=== PATIENT | female | born 1985 | race Caucasian/White ===

== ENCOUNTER 2025-01-29 13:21 | Emergency (ER) | payer SELFPAY ==
[2025-01-29] MEDS ORDERED: ONDANSETRON 4 MG (ODT) TAB ONE (13:38)
[2025-01-29] MEDS ORDERED: MORPHINE 4 MG/ML SYR ONE (13:38)
[2025-01-29] MEDS ORDERED: TDAP (DIPHTH,PERTUSS(ACELL),TET VAC) 0.5 ML VIAL IMVAC ONE (13:45)
--- NOTE | 2025-01-29 14:13 | RAD REPORT ---
EXAMINATION: XR RIGHT FOOT CLINICAL INDICATION: Female, 39 years old. PAIN TECHNIQUE: Multiple views of the right foot were obtained. COMPARISON: No prior exam. FINDINGS: Soft tissue swelling is present affecting the great toe. No acute fracture seen. No disloc ation evident.
[2025-01-29] MEDS ORDERED: LIDOCAINE 1% 20 ML MDV ONE (14:16)
--- NOTE | 2025-01-29 14:48 | EDPHYS ---
Physician Documentation [facility] Name: Kirti Huitron Age: 39 yrs Sex: Female : 1985 Arrival Date: 01/29/2025 Time: 13:21 Bed 13 Private MD: ED Physician Sangeeta Doty HPI: 01/29 13:47 This 39 yrs old Female presents to ER via Wheelchair with complaints of Crush Injury To sb4 Foot - big toe. 13:47 The patient presents with an injury. The complaints affect the right foot. 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 Historical: - Allergies: 13:29 Vancomycin; ap3 - Home Meds: 13:29 None [Active]; ap3 - Immunization history:: Client reports having NOT received the Covid vaccine. Flu vaccine is not up to date. - Infectious Disease History:: Denies. - Social history:: Smoking status: Patient denies any tobacco usage or history of. ROS: 13:48 MS/extremity: Positive for injury or acute deformity, pain, of the right first toe, sb4 13:48 Constitutional: Negative for fever, chills, and weight loss, Exam: 13:56 Head/Face: Normocephalic, atraumatic. Eyes: Extra-ocular motions intact. Periorbital sb4 areas with no swelling, redness, or edema. ENT: Mucous membranes moist. Respiratory: No increased work of breathing, no retractions or nasal flaring. 13:56 Constitutional: The patient appears alert, awake, anxious, in obvious pain, 13:56 Musculoskeletal/extremity: Nails: complete avulsion, of the right first toe, 13:56 Skin: injury, Vital Signs: 13:27 Pulse 87; Resp 19; Temp 97.6; Pulse Ox 98% ; Weight 81.65 kg; Height 5 ft. 2 in. ; Pain ap3 10/10; 13:30 BP 118 / 83; ap3 13:27 Body Mass Index 32.92 (81.65 kg, 157.48 cm) ap3 13:27 Pain Scale: Adult ap3 Gus Coma Score: 13:31 Eye Response: spontaneous(4). Motor Response: obeys commands(6). Verbal Response: ap3 oriented(5). Total: 15. Trauma Score (Adult): 13:31 Eye Response: spontaneous(1); Verbal Response: oriented(1); Motor Response: obeys ap3 commands(2); Systolic BP: > 89 mm Hg(4); Respiratory Rate: 10 to 29 per min(4); Gus Score: 15; Trauma Score: 12 Procedures: 15:00 Nerve block: (digital) of left first toe Medication: Lidocaine 1% without epinephrine sb4 Amount: 5 mls were injected, Effect: the patient's symptoms are improved, Set up for procedure. Performed by Bettye Estes PA-C Patient tolerated well. Right great toenail was splinted back into nailbed and sutured down with one 3-0 Vicryl. Patient tolerated well. MDM: 13:24 Medical Screening Exam initiated sb4 14:04 Independent interpretation of the following test(s) in the Emergency Department X-Ray: sb4 My interpretation is my interpretation of the right foot xray images is no acute fracture of great toe. 15:02 Data reviewed: vital signs, nurses notes, radiologic studies, I have discussed the sb4 patient's presentation/case with the attending Emergency Department Physician; and as a result, I will discharge patient. 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 01/29 13:38 Order name: Foot Right 3 View XRAY; Complete Time: 14:14 sb4 01/29 14:47 Order name: Wound dressing; Complete Time: 15:16 sb4 Administered Medications: 13:49 Drug: morphine IM 4 mg IM once Route: IM; Site: left deltoid; ld1 14:44 Follow up: Response: No adverse reaction ld1 13:49 Drug: Ondansetron PO 4 mg PO once Route: PO; ld1 14:43 Follow up: Response: No adverse reaction ld1 13:49 Drug: Boostrix Tdap IM 0.5 ml IM once; as a single dose Route: IM; Site: right deltoid; ld1 14:44 Follow up: Response: No adverse reaction ld1 14:43 Drug: Lidocaine Infiltration (1 %) 20 ml 20 ml Infiltration once; to bedside {Note: ld1 Administered by PA. Bettye} Volume: 20 ml; Route: Infiltration; Disposition Summary: 01/29/25 14:48 Discharge Ordered Notes: Location: Home sb4 Problem: new sb4 Symptoms: have improved sb4 Condition: Stable sb4 Diagnosis - Contusion of great toe with damage to nail sb4 Followup: sb4 - With: Fady Baires DPM - When: 1 week - Reason: Recheck today's complaints, Re-evaluation by your physician Discharge Instructions: - Discharge Summary Sheet sb4 - Nail Avulsion sb4 Forms: - Patient Portal Instructions sb4 - Leadership Thank You Letter sb4 Signatures: Dispatcher [employer] Arabella Wilson RN RN ap3 Sugar Noel RN RN ld1 Bettye Estes PA-C PA-C sb4 Corrections: (The following items were deleted from the chart) 15:05 13:56 Musculoskeletal/extremity: Nails: partial avulsion, of the right first toe, sb4 sb4
--- NOTE | 2025-01-29 14:48 | ER ---
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 Coronavirus ap3 screen: At this time, the client does not indicate any symptoms associated with coronavirus-19. Ebola Screen: No symptoms or risks identified at this time. Initial Sepsis Screen: Does the patient meet any 2 criteria? No. Patient's initial sepsis screen is negative. Does the patient have a suspected source of infection? No. Patient's initial sepsis screen is negative. Risk Assessment: Do you want to hurt yourself or someone else? Patient reports no desire to harm self or others. Onset of symptoms was January 29, 2025. 13:27 Method Of Arrival: Wheelchair ap3 13:27 Acuity: STEVEN 2 ap3 Triage Assessment: 13:30 General: Appears uncomfortable, Behavior is cooperative, appropriate for age. Pain: ap3 Complains of pain in right first toe and Right first toenail Pain currently is 10 out of 10 on a pain scale. Neuro: Level of Consciousness is awake, alert, obeys commands, Oriented to person, place, time, situation. Cardiovascular: Patient's skin is warm and dry. Respiratory: Airway is patent Respiratory effort is even, unlabored, Respiratory pattern is regular, symmetrical. Historical: - Allergies: 13:29 Vancomycin; ap3 - Home Meds: 13:29 None [Active]; ap3 - Immunization history:: Client reports having NOT received the Covid vaccine. Flu vaccine is not up to date. - Infectious Disease History:: Denies. - Social history:: Smoking status: Patient denies any tobacco usage or history of. Screenin:30 Abuse screen: Denies threats or abuse. Nutritional screening: No deficits noted. ap3 Tuberculosis screening: No symptoms or risk factors identified. 13:58 [facility] ED Fall Risk Assessment (Adult) History of falling in the last 3 months, ld1 including since admission No falls in past 3 months (0 pts) Confusion or Disorientation No (0 pts) Intoxicated or Sedated No (0 pts) Impaired Gait No (0 pts) Mobility Assist Device Used No (0 pt) Altered Elimination No (0 pt) Score/Fall Risk Level 0 - 2 = Low Risk Oriented to surroundings, Hourly rounding (assess needs \T\ fall precautionary measures) done. Assessment: 13:58 General: Appears in no apparent distress. comfortable, Behavior is calm, cooperative, ld1 appropriate for age. Pain: Complains of pain in Left first toenail Pain does not radiate. Pain currently is 8 out of 10 on a pain scale. Quality of pain is described as throbbing, Pain began suddenly, Is continuous. Neuro: Level of Consciousness is awake, alert, obeys commands, Oriented to person, place, time, situation. Cardiovascular: Capillary refill < 3 seconds Patient's skin is warm and dry. Respiratory: Airway is patent Respiratory effort is even, unlabored. GI: Abdomen is flat, non-distended. : No signs and/or symptoms were reported regarding the genitourinary system. EENT: No signs and/or symptoms were reported regarding the EENT system. Derm: Wound noted Left first toenail. 14:44 Reassessment: Patient appears in no apparent distress at this time. No changes from ld1 previously documented assessment. Patient and/or family updated on plan of care and expected duration. Pain level reassessed. Patient is alert, oriented x 3, equal unlabored respirations, skin warm/dry/pink. Vital Signs: 13:27 Pulse 87; Resp 19; Temp 97.6; Pulse Ox 98% ; Weight 81.65 kg; Height 5 ft. 2 in. ; Pain ap3 10/10; 13:30 BP 118 / 83; ap3 13:27 Body Mass Index 32.92 (81.65 kg, 157.48 cm) ap3 13:27 Pain Scale: Adult ap3 Quinlan Coma Score: 13:31 Eye Response: spontaneous(4). Motor Response: obeys commands(6). Verbal Response: ap3 oriented(5). Total: 15. Trauma Score (Adult): 13:31 Eye Response: spontaneous(1); Verbal Response: oriented(1); Motor Response: obeys ap3 commands(2); Systolic BP: > 89 mm Hg(4); Respiratory Rate: 10 to 29 per min(4); Quinlan Score: 15; Trauma Score: 12 ED Course: 13:22 Patient arrived in ED. im 13:23 Bettye Estes PA-C is PHCP. sb4 13:23 Sangeeta Doty MD is Attending Physician. sb4 13:29 Triage completed. ap3 13:31 Arm band placed on left wrist. ap3 13:42 Sugar Noel, RN is Primary Nurse. ld1 13:56 Foot Right 3 View XRAY In Process Unspecified. EDMS 13:58 Patient has correct armband on for positive identification. Placed in gown. Bed in low ld1 position. Call light in reach. Side rails up X2. 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 Pulse ox on. NIBP on. Door closed. Noise minimized. Warm blanket given. 14:48 Fady Baires DPM is Referral Physician. sb4 15:16 No provider procedures requiring assistance completed. Patient did not have IV access ld1 during this emergency room visit. Administered Medications: 13:49 Drug: morphine IM 4 mg IM once Route: IM; Site: left deltoid; ld1 14:44 Follow up: Response: No adverse reaction ld1 13:49 Drug: Ondansetron PO 4 mg PO once Route: PO; ld1 14:43 Follow up: Response: No adverse reaction ld1 13:49 Drug: Boostrix Tdap IM 0.5 ml IM once; as a single dose Route: IM; Site: right deltoid; ld1 14:44 Follow up: Response: No adverse reaction ld1 14:43 Drug: Lidocaine Infiltration (1 %) 20 ml 20 ml Infiltration once; to bedside {Note: ld1 Administered by PA. Bettye} Volume: 20 ml; Route: Infiltration; Medication: 13:58 VIS not applicable for this client. ld1 Outcome: 14:48 Discharge ordered by . sb4 15:17 Discharged to home ambulatory, ld1 15:17 Condition: stable 15:17 Discharge instructions given to patient, family, Instructed on discharge instructions, follow up and referral plans. Demonstrated understanding of instructions, follow-up care, 15:17 Patient left the ED. ld1 Signatures: Dispatcher [employer] EDMS Arabella Ivan RN RN ap3 Sugar Noel RN RN ld1 Bettye Estes PA-C PA-C sb4 Jossie Salcedo im
[2025-01-29 15:21] VITALS: TEMP 97.6; O2SAT 98
[2025-01-29 15:22] VITALS: BP 118/83
== END 2025-01-29 15:17 | disposition home or self-care (01) ==
LOC: ER 13:21
DX: S90.211A Contusion of right great toe with damage to nail, initial encounter (principal)
CPT/HCPCS: 64450; 90715; 96372; 99284; J2003; Q0162